=== PATIENT | male | born 1990 | race Caucasian/White ===

== ENCOUNTER → 2016-03-17 | Outpatient (CLI) | payer OTHER ==
[2016-03-17 17:41] LABS: Basophils % (A) 1 %; CH 29.5; CHCM 33.8; Eosinophils # (A) 0.1 k/uL (0-0.7); Eosinophils % (A) 1 %; HCT 47.7 % (39.0-53.0); HDW 2.29; HGB 16.2 gm/dL (13.0-17.5); Luc % (Auto) 2; Lymphocytes # (A) 1.1 k/uL (1.0-4.8); Lymphocytes % (A) 18 %; MCH 29.7 pg (25.0-35.0); MCHC 33.9 g/dL (31.0-37.0); MCV 87.6 fL (80.0-100.0); Monocytes # (A) 0.3 k/uL (0-1.0); Monocytes % (A) 5 %; Neutrophils # (A) 4.3 k/uL (1.3-7.7); Neutrophils % (A) 73 %; RBC 5.45 m/uL (4.30-5.90); RDW 12.7 % (11.5-15.5); WBC 5.9 k/uL (3.8-10.6); WBC (Perox) 5.99
[2016-03-17 17:49] LABS: ALT 37 U/L (21-72); AST 25 U/L (17-59); Alkaline Phosphatase 71 U/L (38-126); Anion Gap 14 mmol/L; Blood Urea Nitrogen 18 mg/dL (9-20); Calcium 9.8 mg/dL (8.4-10.2); Carbon Dioxide 29 mmol/L (22-30); Chloride 100 mmol/L (98-107); Glucose 110 mg/dL (74-99); Non-African American GFR(MDRD) >60 (>60 ml/min/1.73 sqM); Potassium 4.3 mmol/L (3.5-5.1); Sodium 143 mmol/L (137-145); Total Bilirubin 0.5 mg/dL (0.2-1.3); Total Protein 7.5 g/dL (6.3-8.2)
[2016-03-17 20:41] LABS: Hemoglobin A1C 4.8 % (4.2-6.1)
== END | disposition home or self-care (01) ==
LOC: LABWHC1 16:58
PROVIDERS: ATTEND Psychiatry & Neurology Psychiatry
DX: T50.905A Adverse effect of unspecified drugs, medicaments and biological substances, initial encounter (principal)
CPT/HCPCS: 36415; 80053; 83036; 84443; 85025

== ENCOUNTER → 2016-03-18 | Outpatient (CLI) | payer OTHER | END | disposition home or self-care (01) | LOC: LABWHC1 13:50 | PROVIDERS: ATTEND Psychiatry & Neurology Psychiatry | DX: T50.905A Adverse effect of unspecified drugs, medicaments and biological substances, initial encounter (principal) | CPT/HCPCS: 36415; 80183 ==

== ENCOUNTER → 2016-10-08 | Outpatient (CLI) | payer OTHER ==
[2016-10-08 08:01] LABS: ALT 55 U/L (21-72); AST 31 U/L (17-59); Alkaline Phosphatase 69 U/L (38-126); Anion Gap 11 mmol/L; Blood Urea Nitrogen 27 mg/dL (9-20); Calcium 9.6 mg/dL (8.4-10.2); Carbon Dioxide 29 mmol/L (22-30); Chloride 102 mmol/L (98-107); Glucose 86 mg/dL (74-99); Non-African American GFR(MDRD) >60 (>60 ml/min/1.73 sqM); Potassium 4.6 mmol/L (3.5-5.1); Sodium 142 mmol/L (137-145); Total Bilirubin 0.5 mg/dL (0.2-1.3); Total Protein 7.6 g/dL (6.3-8.2)
[2016-10-08 11:34] LABS: Hemoglobin A1C 5.2 % (4.2-6.1)
== END | disposition home or self-care (01) ==
LOC: LABWHC1 07:15
PROVIDERS: ATTEND Psychiatry & Neurology Psychiatry
DX: T50.905A Adverse effect of unspecified drugs, medicaments and biological substances, initial encounter (principal)
CPT/HCPCS: 36415; 80053; 80183; 83036; 84443

== ENCOUNTER → 2018-11-21 | Outpatient (CLI) | payer MEDICARE, OTHER ==
[2018-11-21 17:46] LABS: T4, Free (Free Thyroxine) 1.3 ng/dL (0.80-1.80)
[2018-11-21 17:51] LABS: African American GFR (CKD) 87.3 (60.0-200.0); Chol/HDL Ratio 6.05; LDL Cholesterol,Calculated 166.6 mg/dL (0.0-131.0); Lithium 0.3 mmol/L (0.5-1.2); VLDL Calculation 45.4 mg/dL (5.00-40.00)
[2018-11-21 21:20] LABS: Hemoglobin A1C 5.2 % (4.0-6.0)
== END | disposition home or self-care (01) ==
LOC: LABWHC1 07:44
PROVIDERS: ATTEND Psychiatry & Neurology Psychiatry
DX: Z51.81 Encounter for therapeutic drug level monitoring (principal); Z79.899 Other long term (current) drug therapy
CPT/HCPCS: 36415; 80061; 80178; 82565; 82947; 83036; 84439; 84443; 84520

== ENCOUNTER → 2019-02-24 | Outpatient (CLI) | payer MEDICARE, OTHER | END | disposition home or self-care (01) | LOC: LABWHC1 10:03 | PROVIDERS: ATTEND Psychiatry & Neurology Psychiatry | DX: Z51.81 Encounter for therapeutic drug level monitoring (principal); Z79.899 Other long term (current) drug therapy | CPT/HCPCS: 36415; 80178 ==

== ENCOUNTER 2020-01-15 12:46 | Emergency (ER) | payer MEDICARE, OTHER ==
[2020-01-15 12:56] VITALS: RESP 18
[2020-01-15] MEDS ORDERED: IBUPROFEN 600 MG TAB PO STA (14:01)
--- NOTE | 2020-01-15 14:15 | ED ---
General Adult HPI - General Chief complaint: Weakness Stated complaint: Poss COVID Time Seen by Provider: 01/15/20 13:45 Source: patient Mode of arrival: wheelchair Limitations: no limitations - History of Present Illness Initial comments: Patient is a 29-year-old male, history of asthma, mild cognitive impairment, presenting to emergency Department with complaints of body aches, fever that started late last night. He does have a dry cough as well. Patient states his doctor sent him in for a Covid test. Patient states he took some Tylenol about 2 hours prior to arrival. He denies any abdominal pain, nausea, vomiting, diarrhea. He denies any chest pain or shortness of breath. His biggest complaint is of body aches. He states has been able to eat and drink as normal. He has no further complaints at this time. Upon arrival to the ER, patient is febrile at 101.4, pulse is 105, rest of vitals are stable. - Related Data Home Medications Medication Instructions Recorded Confirmed ARIPiprazole [Abilify] 1 tab PO HS 09/05/13 09/05/13 Loratadine [Claritin] 10 mg PO DAILY 09/05/13 09/05/13 Methylphenidate HCl [Ritalin LA] 1 tab PO BID 09/05/13 09/05/13 OXcarbazepine [Oxcarbazepine] PO DIRECTED 09/05/13 09/05/13 Prazosin [Minipress] 10 mg PO HS 09/05/13 09/05/13 traZODone HCL [Desyrel] 1 tab PO DAILY 09/05/13 09/05/13 Allergies Allergy/AdvReac Type Severity Reaction Status Date / Time mirtazapine [From Remeron] AdvReac Vomiting Verified 01/15/20 12:56 Review of Systems ROS Statement: Those systems with pertinent positive or pertinent negative responses have been documented in the HPI. ROS Other: All systems not noted in ROS Statement are negative. Past Medical History Past Medical History: Asthma Additional Past Medical History / Comment(s): mildly incognitive History of Any Multi-Drug Resistant Organisms: MRSA Date of last positivie culture/infection: 2006 MDRO Source:: leg Past Surgical History: No Surgical Hx Reported Past Psychological History: No Psychological Hx Reported Smoking Status: Former smoker Past Alcohol Use History: None Reported Past Drug Use History: None Reported General Exam - General Exam Comments Initial Comments: GENERAL: Patient is well-developed and well-nourished. Patient is nontoxic and in no acute distress. HEAD: Atraumatic, normocephalic. EYES: Pupils equal round and reactive to light, extraocular movements intact, sclera anicteric, conjunctiva are normal. Eyelids were unremarkable. ENT: TMs normal, nares patent, oropharynx clear without exudates. Moist mucous membranes. NECK: Normal range of motion, supple without lymphadenopathy or JVD. LUNGS: Unlabored respirations. Breath sounds clear to auscultation bilaterally and equal. No wheezes rales or rhonchi. HEART: Regular rate and rhythm without murmurs, rubs or gallops. ABDOMEN: Soft, nontender, normoactive bowel sounds. No guarding, no rebound. No masses appreciated. : Deferred MUSCULOSKELETAL: Normal extremities with adequate strength and normal range of motion, no pitting or edema. No clubbing or cyanosis. NEUROLOGICAL: Patient is alert and oriented x 3. Motor and sensory are also intact. Cranial nerves II through XII grossly intact. Symmetrical smile. Normal speech, normal gait. PSYCH: Normal mood, normal affect. SKIN: Warm, Dry, normal turgor, no rashes or lesions noted. Limitations: no limitations Course Vital Signs 01/15/20 01/15/20 01/15/20 12:47 13:44 15:16 Temperature 99.0 F 101.4 F H 99.9 F H Pulse Rate 105 H Respiratory 18 Rate Blood Pressure 99/69 O2 Sat by Pulse 98 Oximetry 01/15/20 15:42 Temperature Pulse Rate 77 Respiratory 18 Rate Blood Pressure 108/74 O2 Sat by Pulse 99 Oximetry Medical Decision Making - Medical Decision Making She is a 29-year-old male here with flulike symptoms that started last night. He did arrive with a fever, rest of vitals were within normal limits. Patient took Tylenol about 3 hours prior to arrival. I did give him ibuprofen. His exam is unremarkable, his chest x-ray shows no acute findings. Patient was swabbed for Covid, this is pending. His vitals did improve after the ibuprofen. Patient is stable for discharge. I recommended him to continue with Tylenol and alternate with Motrin for fever and discomfort. He needs to continue drinking lots of water. He is in agreement with this plan and care. He is stable for discharge. Return parameters were discussed with the patient he verbalizes understanding. Disposition Clinical Impression: Upper respiratory infection Disposition: HOME SELF-CARE Condition: Stable Instructions (If sedation given, give patient instructions): Upper Respiratory Infection (ED) Additional Instructions: Please return to the Emergency Department if symptoms worsen or any other concerns. COVID test is pending. Takes about 48 hours. Alternate between Tylenol and Motrin every 4 hours for fever control. Increase water intake. Follow-up with PCP. Is patient prescribed a controlled substance at d/c from ED?: No Referrals: Pamela Keating MD [Primary Care Provider] - 1-2 days
--- NOTE | 2020-01-15 14:26 | XR ---
EXAMINATION TYPE: XR chest 2V DATE OF EXAM: 01/15/2020 COMPARISON: 05/04/2012 HISTORY: 29-year-old male cough and fever TECHNIQUE: PA and lateral views FINDINGS: The cardiomediastinal silhouette, aorta, and pulmonary vasculature are within normal limits. Some haz y lower lung densities related to overlying soft tissue. No consolidation or pleural effusion seen. IMPRESSION: No acute cardiopulmonary process.
[2020-01-15 15:17] VITALS: TEMP 99.9
[2020-01-15 15:43] VITALS: BP 108/74; PULSE 77
== END 2020-01-15 15:51 | disposition home or self-care (01) ==
LOC: EC 12:46 → EEVIPCON 12:46 → EC 15:51
DX: J06.9 Acute upper respiratory infection, unspecified (principal); Z88.8 Allergy status to other drugs, medicaments and biological substances; Z86.14 Personal history of Methicillin resistant Staphylococcus aureus infection; Z87.891 Personal history of nicotine dependence
CPT/HCPCS: 71046; 99285; U0003

== ENCOUNTER 2020-10-03 17:39 | Emergency (ER) | payer MEDICARE, OTHER ==
[2020-10-03 18:13] VITALS: BP 126/82; PULSE 77; RESP 18; TEMP 98.5
[2020-10-03] MEDS ORDERED: HYDROcodone/APAP 5-325MG 1 EACH TAB PO STA (19:21)
[2020-10-03] MEDS ORDERED: KETOROLAC 15 MG/ML 1 ML VIAL IVP STA (19:21)
[2020-10-03 20:13] LABS: Glucose,Whole Blood 95 mg/dL (75-99)
--- NOTE | 2020-10-03 20:42 | CT ---
EXAMINATION TYPE: CT brain wo con DATE OF EXAM: 10/03/2020 COMPARISON: None HISTORY: RT side facial numbess CT DLP: 1090.4 mGycm Automated exposure control for dose reduction was used. Ventricles and sulci appear normal. There is no mass effect nor midline shift. There is no sign of in tracranial hemorrhage. Calvarium is intact. There is no evidence of cerebral edema IMPRESSION: Negative unenhanced head CT scan.
[2020-10-03] MEDS ORDERED: predniSONE 20 MG TAB PO STA (21:24)
[2020-10-03] MEDS ORDERED: valACYclovir HCL 1,000 MG TABLET PO STA (21:25)
[2020-10-03] MEDS ORDERED: ARTIFICIAL TEARS-HYPROMELLOSE DROPS 15 ML BTL RIGHT EYE PRN (21:26)
--- NOTE | 2020-10-03 21:34 | ED ---
General Adult HPI - General Chief complaint: Neuro Symptoms/Deficit Stated complaint: Facial numbness Time Seen by Provider: 10/03/20 18:00 Source: patient, RN notes reviewed, old records reviewed Mode of arrival: wheelchair Limitations: physical limitation - History of Present Illness Initial comments: Patient is a 30-year-old male who presents emergency Department with a two-day history of complete right-sided paralysis, including his forehead. He states this occurred abruptly 2 days ago when he awoke with it. He denies any past medical history. Denies any chest pain, shortness of breath, fevers, chills, sick contacts. He has no other acute complaints at this time. Patient presents today for evaluation of his complete paralysis. He denies any changes in his vision or difficulty swallowing. Denies any difficulty breathing. He states it is not improved but also has not worsened over the last 2 days.He denies any other weakness, numbness, or other neurological deficits at this time. He denies any change in vision or right eye pain. States he does not have any pain in his right eye. - Related Data Home Medications Medication Instructions Recorded Confirmed ARIPiprazole [Abilify] 1 tab PO HS 09/05/13 09/05/13 Loratadine [Claritin] 10 mg PO DAILY 09/05/13 09/05/13 Methylphenidate HCl [Ritalin LA] 1 tab PO BID 09/05/13 09/05/13 OXcarbazepine [Oxcarbazepine] PO DIRECTED 09/05/13 09/05/13 Prazosin [Minipress] 10 mg PO HS 09/05/13 09/05/13 traZODone HCL [Desyrel] 1 tab PO DAILY 09/05/13 09/05/13 Previous Rx's Medication Instructions Recorded Artificial Tears-Hypromellose 1 drops RIGHT EYE Q1HR #1 dispenser 10/03/20 [Artificial Tear Drops] Erythromycin Ophth Oint (1 gm) 1 applic RIGHT EYE QID #1 tube 10/03/20 [Ilotycin Ophth Oint (1 gm)] predniSONE [Deltasone] 60 mg PO DAILY 7 Days #21 tab 10/03/20 valACYclovir [Valtrex] 1,000 mg PO TID 7 Days #42 tab 10/03/20 Allergies Allergy/AdvReac Type Severity Reaction Status Date / Time mirtazapine [From Remeron] AdvReac Vomiting Verified 10/03/20 18:13 Review of Systems ROS Statement: Those systems with pertinent positive or pertinent negative responses have been documented in the HPI. Review of Systems: CONST: Denies fever EYES: Denies blurry vision ENT: Denies nasal congestion C/V: Denies Chest pain RESP: Denies shortness of breath GI: Denies abdominal pain : Denies dysuria SKIN: Denies rash. MSK: Denies joint pain. NEURO: Endorses right-sided facial paralysis ROS Other: All systems not noted in ROS Statement are negative. Past Medical History Past Medical History: Asthma, Hyperlipidemia Additional Past Medical History / Comment(s): mildly incognitive History of Any Multi-Drug Resistant Organisms: MRSA Date of last positivie culture/infection: 2006 MDRO Source:: leg Past Surgical History: No Surgical Hx Reported Past Psychological History: No Psychological Hx Reported Smoking Status: Former smoker Past Alcohol Use History: None Reported Past Drug Use History: None Reported General Exam - General Exam Comments Initial Comments: General: Appears in no acute distress. HEAD: Normal with no signs of head trauma. EYES: PERRLA, EOMI, conjunctiva normal, no discharge. Patient does have paralysis of the right eye lid. ENT: Hearing grossly intact, normal oropharynx. RESPIRATORY: Clear breath sounds bilaterally. No wheezes, rales, or rhonchi. C/V: Regular rate and rhythm. S1 and S2 auscultated, no edema, peripheral pulses 2+ and intact throughout ABD: Abd is soft, nontender, nondistended EXT: Normal range of motion, no obvious deformity SKIN: No rashes or lesions observed on exposed skin. NEURO: Alert and oriented 4. Neurological exam is within normal limits except for a complete paralysis of the right side of the face including the forehead. 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 Cranial nerves II through XII are intact except for the right facial nerve. Remainder of the neurological exam is unremarkable. Cerebellar function is intact as evidenced by normal finger-nose testing. There are no focal sensory or strength deficits otherwise. Patient is able to ambulate without difficulty. Answers all questions and follows all commands. Stroke scale is 3 for complete right-sided facial paralysis. 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 I cannot rule out possible CVA at this time, and therefore just a screening CT of the head will be obtained. Symptoms have been persistent for 2 days without change. He was in agreement this plan. CT imaging showed no acute intracranial process. I discussed with the patient that he has right-sided Colon's palsy. I did recommend that he follow up with neurology. He will be provided with right-sided eyedrops, 60 mg of prednisone, as well as valacyclovir here in the emergency department. He was in agreement with this plan. He'll be discharged home with prescriptions as well as outpatient neurology follow-up. He was in agreement with this plan. I also provided him with tape instructions to take his right eye shut while sleeping to avoid having it dry out. He expressed understanding. I answered all questions that he had. I will provide the patient with a prescription for prednisone, valacyclovir, eye ointment, artificial tears. I instructed the patient to follow up with their PCP in the next 3 days. I provided contact information for follow up with Dr. Mehta of neurology. I explained that the patient should return to the emergency department if they experience any worsening symptoms. Strict return precautions were discussed with the patient. The patient expressed understanding of these instructions. I answered all questions that the patient had. The patient was discharged home in fair condition with their prescriptions and follow up information. - Lab Data Lab Results 10/03/20 Range/Units 20:11 POC Glucose (mg/dL) 95 (75-99) mg/dL POC Glu Pbx Wire Chief ID Maricruz Zimmerman Disposition Clinical Impression: Colon's palsy Disposition: HOME SELF-CARE Condition: Fair Instructions (If sedation given, give patient instructions): Colon Palsy (ED) Prescriptions: Artificial Tears-Hypromellose [Artificial Tear Drops] 1 drops RIGHT EYE Q1HR #1 dispenser predniSONE [Deltasone] 60 mg PO DAILY 7 Days #21 tab Erythromycin Ophth Oint (1 gm) [Ilotycin Ophth Oint (1 gm)] 1 applic RIGHT EYE QID #1 tube valACYclovir [Valtrex] 1,000 mg PO TID 7 Days #42 tab Is patient prescribed a controlled substance at d/c from ED?: No Referrals: Pamela Keating MD [Primary Care Provider] - 1-2 days Boom Mehta MD [STAFF PHYSICIAN] - 1-2 days
== END 2020-10-03 21:57 | disposition home or self-care (01) ==
LOC: EEVIPCON 17:39 → EC 17:39
DX: G51.0 Bell's palsy (principal); J45.909 Unspecified asthma, uncomplicated; E78.5 Hyperlipidemia, unspecified; Z79.52 Long term (current) use of systemic steroids; Z87.891 Personal history of nicotine dependence
CPT/HCPCS: 36415; 70450; 99284; J7512

== ENCOUNTER 2021-03-28 17:24 | Emergency (ER) | payer MEDICARE, OTHER ==
--- NOTE | 2021-03-28 19:11 | ED ---
General Adult HPI - General Chief complaint: Weakness Stated complaint: SHAAN,Weakness Time Seen by Provider: 03/28/21 18:58 Source: patient, RN notes reviewed Mode of arrival: ambulatory Limitations: no limitations - History of Present Illness Initial comments: 30-year-old male presents to the emergency department for evaluation of generalized weakness and body aches. Patient states he thinks he has Covid. Patient states the symptoms began on Tuesday with some nasal congestion and mild cough. States his has similar symptoms and tested positive for Covid. Does complain of mild shortness of breath with activity, but denies difficulty breathing. Patient denies fever, chills, headache, chest pain, abdominal pain, nausea, vomiting, diarrhea, dysuria, or hematuria. - Related Data Home Medications Medication Instructions Recorded Confirmed ARIPiprazole [Abilify] 1 tab PO HS 09/05/13 09/05/13 Loratadine [Claritin] 10 mg PO DAILY 09/05/13 09/05/13 Methylphenidate HCl [Ritalin LA] 1 tab PO BID 09/05/13 09/05/13 OXcarbazepine [Oxcarbazepine] PO DIRECTED 09/05/13 09/05/13 Prazosin [Minipress] 10 mg PO HS 09/05/13 09/05/13 traZODone HCL [Desyrel] 1 tab PO DAILY 09/05/13 09/05/13 Previous Rx's Medication Instructions Recorded Artificial Tears-Hypromellose 1 drops RIGHT EYE Q1HR #1 dispenser 10/03/20 [Artificial Tear Drops] Erythromycin Ophth Oint (1 gm) 1 applic RIGHT EYE QID #1 tube 10/03/20 [Ilotycin Ophth Oint (1 gm)] predniSONE [Deltasone] 60 mg PO DAILY 7 Days #21 tab 10/03/20 valACYclovir [Valtrex] 1,000 mg PO TID 7 Days #42 tab 10/03/20 Allergies Allergy/AdvReac Type Severity Reaction Status Date / Time mirtazapine [From Remeron] AdvReac Vomiting Verified 03/28/21 17:28 Review of Systems ROS Statement: Those systems with pertinent positive or pertinent negative responses have been documented in the HPI. ROS Other: All systems not noted in ROS Statement are negative. Past Medical History Past Medical History: Asthma, Hyperlipidemia Additional Past Medical History / Comment(s): mildly incognitive History of Any Multi-Drug Resistant Organisms: MRSA Date of last positivie culture/infection: 2006 MDRO Source:: leg Past Surgical History: No Surgical Hx Reported Past Psychological History: No Psychological Hx Reported Smoking Status: Former smoker Past Alcohol Use History: None Reported Past Drug Use History: None Reported General Exam Limitations: no limitations (Well-developed, well-nourished male in no acute distress. Initial temperature 97.2, pulse 101, respirations 18, blood pressure 122/88, pulse oximeter percent on room air.) General appearance: alert, in no apparent distress ENT exam: Present: normal exam, normal oropharynx, mucous membranes moist Neck exam: Present: normal inspection. Absent: tenderness, meningismus, lymphadenopathy Respiratory exam: Present: normal lung sounds bilaterally. Absent: respiratory distress, wheezes, rales, rhonchi, stridor Cardiovascular Exam: Present: regular rate, normal rhythm, normal heart sounds. Absent: systolic murmur, diastolic murmur, rubs, gallop, clicks GI/Abdominal exam: Present: soft, normal bowel sounds. Absent: distended, tenderness, guarding, rebound, rigid Neurological exam: Present: alert, oriented X3, CN II-XII intact Psychiatric exam: Present: normal affect, normal mood Skin exam: Present: warm, dry, intact, normal color. Absent: rash Course Vital Signs 03/28/21 03/28/21 17:25 19:40 Temperature 97.2 F L 98.9 F Pulse Rate 101 H 87 Respiratory 18 16 Rate Blood Pressure 122/88 137/88 O2 Sat by Pulse 100 99 Oximetry Medical Decision Making - Medical Decision Making 30-year-old male with a past medical history of mild asthma presents to the emergency department for evaluation of fatigue and body aches. Physical exam findings are unremarkable. Patient is well-appearing and in no acute distress. Vital signs are stable. He does have some nasal congestion and occasional cou gh. Patient's Covid test is positive. He does not qualify for the monoclonal antibody infusion. He will be discharged home with a note for work. He is instructed to isolate for 10 days from symptoms onset. Did discuss avoidance of smoking and vaping. Encouraged to follow up with his PCP for a recheck via telephone or video visit. Return parameters were discussed in detail. Patient verbalizes understanding and agrees with this plan. This patient's care was discussed with my attending, Dr. Olivares. - Lab Data Lab Results 03/28/21 Range/Units 17:30 Coronavirus (PCR) Detected A (Not Detectd) Disposition Clinical Impression: COVID-19 Disposition: HOME SELF-CARE Condition: Stable Instructions (If sedation given, give patient instructions): Coronavirus Disease 2019 (COVID-19) Additional Instructions: Alternate Tylenol and Motrin as needed for fever. May take oral decongestant for cough and nasal symptoms. Vitamin C, vitamin D, and zinc have been shown to be helpful. Follow-up with your primary care provider for a recheck in the next 1-2 days. Return to the emergency department with any new, worsening, or concerning symptoms. Is patient prescribed a controlled substance at d/c from ED?: No Referrals: Pamela Keating MD [Primary Care Provider] - 1-2 days Time of Disposition: 19:17
[2021-03-28 19:41] VITALS: BP 137/88; PULSE 87; RESP 16; TEMP 98.9
== END 2021-03-28 19:40 | disposition home or self-care (01) ==
LOC: EC 17:24
DX: U07.1 COVID-19 (principal); J45.909 Unspecified asthma, uncomplicated; Z87.891 Personal history of nicotine dependence; Z88.8 Allergy status to other drugs, medicaments and biological substances
CPT/HCPCS: 87635; 99284

== ENCOUNTER 2021-06-11 07:30 | Emergency (ER) | payer MEDICARE, OTHER ==
[2021-06-11] MEDS ORDERED: SODIUM CHLORIDE 0.9% 1,000 ML IV STA (07:55)
[2021-06-11] MEDS ORDERED: SODIUM CHLORIDE 0.9% 500 ML 500 ML IV STA (07:55)
--- NOTE | 2021-06-11 07:58 | ED ---
Weakness HPI - General Chief complaint: Weakness Stated complaint: Weakness Time Seen by Provider: 06/11/21 07:48 Source: patient, RN notes reviewed Mode of arrival: ambulatory Limitations: no limitations - History of Present Illness Initial comments: This a 31-year-old male presents emergency Department with chief complaint of generalized weakness. Patient states that he just feels tired. Patient states that having on and off symptoms for last week or so. Patient states she got out of work today states he made it there but is just too tired, felt very drowsy so he left presented here. He does admit that his been out of his Vyvanse for 1 week. Patient states that he did go to his appointment yesterday for his refill. Patient denies any chest pain shortness breath no headache or dizziness. He states he has some numbness and tingling. 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 Patient denies any cough or cold-like symptoms no fevers or chills. No abdominal pain - Related Data Home Medications Medication Instructions Recorded Confirmed Loratadine [Claritin] 10 mg PO DAILY 09/05/13 06/11/21 Lisdexamfetamine Dimesylate 30 mg PO DAILY 06/11/21 06/11/21 [Vyvanse] Allergies Allergy/AdvReac Type Severity Reaction Status Date / Time mirtazapine [From Remeron] AdvReac Vomiting Verified 06/11/21 08:37 Review of Systems ROS Statement: Those systems with pertinent positive or pertinent negative responses have been documented in the HPI. ROS Other: All systems not noted in ROS Statement are negative. Past Medical History Past Medical History: Asthma, Hyperlipidemia Additional Past Medical History / Comment(s): mildly incognitive, pells palsy History of Any Multi-Drug Resistant Organisms: MRSA Date of last positivie culture/infection: 2006 MDRO Source:: leg Past Surgical History: No Surgical Hx Reported Past Psychological History: No Psychological Hx Reported Smoking Status: Former smoker Past Alcohol Use History: None Reported Past Drug Use History: None Reported General Exam Limitations: no limitations General appearance: alert, in no apparent distress Head exam: Present: atraumatic, normocephalic, normal inspection Eye exam: Present: normal appearance, PERRL, EOMI. Absent: scleral icterus, conjunctival injection, periorbital swelling ENT exam: Present: normal exam, mucous membranes moist Neck exam: Present: normal inspection, full ROM. Absent: tenderness, meningismus, lymphadenopathy Respiratory exam: Present: normal lung sounds bilaterally. Absent: respiratory distress, wheezes, rales, rhonchi, stridor Cardiovascular Exam: Present: regular rate, normal rhythm, normal heart sounds. Absent: systolic murmur, diastolic murmur, rubs, gallop, clicks GI/Abdominal exam: Present: soft, normal bowel sounds. Absent: distended, t enderness, guarding, rebound, rigid Extremities exam: Present: other (Upper and lower extremity strength equal bilaterally) Neurological exam: Present: alert, oriented X3, CN II-XII intact, reflexes normal. Absent: motor sensory deficit Skin exam: Present: warm, dry, intact, normal color. Absent: rash Course Vital Signs 06/11/21 07:36 Temperature 98.2 F Pulse Rate 105 H Respiratory 16 Rate Blood Pressure 129/83 O2 Sat by Pulse 98 Oximetry Medical Decision Making - Medical Decision Making Patient was hydrated, states he feels greatly improved. Labs not revealing acute findings. Patient is neurologically intact with no acute findings. Patient was discharged in stable condition return parameters were discussed. - Lab Data Result diagrams: 06/11/21 08:05 06/11/21 08:05 Lab Results 06/11/21 06/11/21 06/11/21 Range/Units 08:05 08:05 08:05 WBC 7.3 (3.8-10.6) k/uL RBC 5.49 (4.30-5.90) m/uL Hgb 15.9 (13.0-17.5) gm/dL Hct 47.1 (39.0-53.0) % MCV 85.8 (80.0-100.0) fL MCH 29.0 (25.0-35.0) pg MCHC 33.8 (31.0-37.0) g/dL RDW 13.3 (11.5-15.5) % Plt Count 281 (150-450) k/uL MPV 7.4 Neutrophils % 69 % Lymphocytes % 20 % Monocytes % 6 % Eosinophils % 3 % Basophils % 1 % Neutrophils # 5.0 (1.3-7.7) k/uL Lymphocytes # 1.5 (1.0-4.8) k/uL Monocytes # 0.4 (0-1.0) k/uL Eosinophils # 0.2 (0-0.7) k/uL Basophils # 0.1 (0-0.2) k/uL Sodium 135 L (137-145) mmol/L Potassium 3.9 (3.5-5.1) mmol/L Chloride 105 (98-107) mmol/L Carbon Dioxide 22 (22-30) mmol/L Anion Gap 8 mmol/L BUN 16 (9-20) mg/dL Creatinine 0.96 (0.66-1.25) mg/dL Est GFR (CKD-EPI)AfAm >90 (>60 ml/min/1.73 sqM) Est GFR (CKD-EPI)NonAf >90 (>60 ml/min/1.73 sqM) Glucose 138 H (74-99) mg/dL Plasma Lactic Acid Shun (0.7-2.0) mmol/L Calcium 8.8 (8.4-10.2) mg/dL Magnesium 2.0 (1.6-2.3) mg/dL Total Bilirubin 0.5 (0.2-1.3) mg/dL AST 28 (17-59) U/L ALT 27 (4-49) U/L Alkaline Phosphatase 58 (38-126) U/L Total Protein 6.3 (6.3-8.2) g/dL Albumin 3.7 (3.5-5.0) g/dL Urine Color Yellow Urine Appearance Clear (Clear) Urine pH 6.5 (5.0-8.0) Ur Specific [place] 1.016 (1.001-1.035) Urine Protein Negative (Negative) Urine Glucose (UA) Negative (Negative) Urine Ketones Negative (Negative) Urine Blood Negative (Negative) Urine Nitrite Negative (Negative) Urine Bilirubin Negative (Negative) Urine Urobilinogen <2.0 (<2.0) mg/dL Ur Leukocyte Esterase Moderate H (Negative) Urine RBC <1 (0-5) /hpf Urine WBC 3 (0-5) /hpf Heterophile Antibody (Negative) 06/11/21 06/11/21 Range/Units 08:05 08:05 WBC (3.8-10.6) k/uL RBC (4.30-5.90) m/uL Hgb (13.0-17.5) gm/dL Hct (39.0-53.0) % MCV (80.0-100.0) fL MCH (25.0-35.0) pg MCHC (31.0-37.0) g/dL RDW (11.5-15.5) % Plt Count (150-450) k/uL MPV Neutrophils % % Lymphocytes % % Monocytes % % Eosinophils % % Basophils % % Neutrophils # (1.3-7.7) k/uL Lymphocytes # (1.0-4.8) k/uL Monocytes # (0-1.0) k/uL Eosinophils # (0-0.7) k/uL Basophils # (0-0.2) k/uL Sodium (137-145) mmol/L Potassium (3.5-5.1) mmol/L Chloride (98-107) mmol/L Carbon Dioxide (22-30) mmol/L Anion Gap mmol/L BUN (9-20) mg/dL Creatinine (0.66-1.25) mg/dL Est GFR (CKD-EPI)AfAm (>60 ml/min/1.73 sqM) Est GFR (CKD-EPI)NonAf (>60 ml/min/1.73 sqM) Glucose (74-99) mg/dL Plasma Lactic Acid Shun 1.7 (0.7-2.0) mmol/L Calcium (8.4-10.2) mg/dL Magnesium (1.6-2.3) mg/dL Total Bilirubin (0.2-1.3) mg/dL AST (17-59) U/L ALT (4-49) U/L Alkaline Phosphatase (38-126) U/L Total Protein (6.3-8.2) g/dL Albumin (3.5-5.0) g/dL Urine Color Urine Appearance (Clear) Urine pH (5.0-8.0) Ur Specific [place] (1.001-1.035) Urine Protein (Negative) Urine Glucose (UA) (Negative) Urine Ketones (Negative) Urine Blood (Negative) Urine Nitrite (Negative) Urine Bilirubin (Negative) Urine Urobilinogen (<2.0) mg/dL Ur Leukocyte Esterase (Negative) Urine RBC (0-5) /hpf Urine WBC (0-5) /hpf Heterophile Antibody Negative (Negative) Disposition Clinical Impression: Fatigue, Dehydration Disposition: HOME SELF-CARE Condition: Stable Instructions (If sedation given, give patient instructions): Fatigue (ED) Additional Instructions: Please return to the Emergency Department if symptoms worsen or any other concerns. Is patient prescribed a controlled substance at d/c from ED?: No Referrals: Pamela Keating MD [Primary Care Provider] - 1-2 days Time of Disposition: 10:01
[2021-06-11 08:33] LABS: Basophils # (A) 0.1 k/uL (0-0.2); Basophils % (A) 1 %; Eosinophils # (A) 0.2 k/uL (0-0.7); Eosinophils % (A) 3 %; HCT 47.1 % (39.0-53.0); HGB 15.9 gm/dL (13.0-17.5); Lymphocytes # (A) 1.5 k/uL (1.0-4.8); Lymphocytes % (A) 20 %; MCHC 33.8 g/dL (31.0-37.0); MCV 85.8 fL (80.0-100.0); Mean Platelet Volume 7.4; Monocytes # (A) 0.4 k/uL (0-1.0); Monocytes % (A) 6 %; Neutrophils % (A) 69 %; Platelet Count 281 k/uL (150-450); RBC 5.49 m/uL (4.30-5.90); RDW 13.3 % (11.5-15.5); WBC 7.3 k/uL (3.8-10.6)
[2021-06-11 08:59] LABS: ALT 27 U/L (4-49); AST 28 U/L (17-59); African American GFR (CKD) >90 (>60 ml/min/1.73 sqM); Albumin 3.7 g/dL (3.5-5.0); Alkaline Phosphatase 58 U/L (38-126); Anion Gap 8 mmol/L; Blood Urea Nitrogen 16 mg/dL (9-20); Calcium 8.8 mg/dL (8.4-10.2); Carbon Dioxide 22 mmol/L (22-30); Chloride 105 mmol/L (98-107); Glucose 138 mg/dL (74-99); Non-African American GFR(CKD) >90 (>60 ml/min/1.73 sqM); Potassium 3.9 mmol/L (3.5-5.1); Sodium 135 mmol/L (137-145); Total Bilirubin 0.5 mg/dL (0.2-1.3); Total Protein 6.3 g/dL (6.3-8.2)
[2021-06-11 09:09] LABS: Appearance,Urine Clear (Clear); Bilirubin,Urine Negative (Negative); Blood,Urine Negative (Negative); Color,Urine Yellow; Glucose,Urine (UA) Negative (Negative); Ketones,Urine Negative (Negative); Leukocyte Esterase,Urine Moderate (Negative); Nitrite,Urine Negative (Negative); PH, Urine 6.5 (5.0-8.0); Protein,Urine Negative (Negative); RBC,Urine <1 /hpf (0-5); Specific Gravity,Urine 1.016 (1.001-1.035); Urobilinogen,Urine <2.0 mg/dL (<2.0); WBC,Urine 3 /hpf (0-5)
[2021-06-11 10:27] VITALS: BP 123/62; PULSE 77; RESP 18; TEMP 98
== END 2021-06-11 10:25 | disposition home or self-care (01) ==
LOC: EC 07:30
DX: R53.83 Other fatigue (principal); E86.0 Dehydration; J45.909 Unspecified asthma, uncomplicated; E78.5 Hyperlipidemia, unspecified; Z87.891 Personal history of nicotine dependence
CPT/HCPCS: 36415; 80053; 81001; 83605; 83735; 85025; 86308; 93005; 96360; 99285

== ENCOUNTER → 2024-01-12 | Outpatient (CLI) | payer MEDICARE, OTHER ==
[2024-01-12 11:51] VITALS: BP 102/68; PULSE 73; RESP 20; TEMP 97.8
--- NOTE | 2024-01-12 13:59 | P.SLEEP ---
History of Present Illness DATE: 2023 CONSULTATION/NEW PATIENT EVALUATION HISTORY OF PRESENT ILLNESS/SLEEP-WAKE EVALUATION: 33-year-old gentleman had been evaluated in the sleep center for possible obstructive sleep apnea hypopnea syndrome. SLEEP SCHEDULE: Usually sleep schedule from 3 AM until 12 noon presently 7 days a week. FALLING ASLEEP: Patient has difficulties with falling asleep, although no TV in bedroom. DURING SLEEP: Patient sleeps in different positions with loud snoring and episodes of stop breathing during the sleep. Patient wakes up from sleep up to 10 times. Positive history of restless leg symptoms, grinding teeth, dry mouth, sleep talking, sweating and nocturia. No history of hypnogogical hallucinations, sleep paralysis, or cataplexy. DURING THE DAY/WAKE STATE: In the morning patient wake up tired, has difficulties to pay attention, has, epilepsy, stroke, cancer, diabetes, during sleep with memory, concentration, irritability, depression and anxiety. [place] sleepiness scale is increased to 11. Patient may take 2 naps afternoon. PAST MEDICAL HISTORY: Hyperlipidemia, ADHD, history of bipolar. PAST SURGICAL HISTORY: None. MEDICATIONS: Please see below. SOCIAL HISTORY: Please see below. FAMILY HISTORY: Heart problems, epilepsy, stroke, asthma, cancer, during the sleep. REVIEW OF SYSTEMS: Loud snoring, multiple awakenings from sleep, sleepiness during the day. No fevers. No double vision. No recent chest pain. No shortness of breath. No abdominal pain. No bleeding episodes. No blood in urine. No seizure episodes. PHYSICAL EXAMINATION: GENERAL: A pleasant patient without any distress. VITAL SIGNS: Please see below, weight 310 pounds, BMI 43.8. HEENT: PERRLA, EOMI. Evaluation of oropharynx showed tongue protrudes midline, low position of soft palate Mallampati 4. NECK: Supple. No JVD. Thyroid is not palpable. 20 inches in circumference. LUNGS: Clear to percussion and to auscultation. Good air exchange. No wheezing or rhonchi. HEART: S1, S2 regular. No murmurs, gallops or rubs. ABDOMEN: Soft and nontender. Bowel sounds are present. No organomegaly appreciated. EXTREMITIES: No clubbing or cyanosis. SNACK STEWARD: Awake, alert, and oriented x3. Cranial nerves 2 to 7 intact. There is no fasciculation or atrophy noted. No focal deficits observed. ASSESSMENT: 1. Loud snoring, multiple awakenings from sleep, extremely low position of soft palate Mallampati 4, sleepiness with [place] Sleepiness Scale increased to 11, extremely wide neck 20 inches in circumference. Obstructive sleep apnea hypopnea syndrome. 2. Obesity, BMI 43.8. 3. Hyperlipidemia. 4. ADHD. 5. Restless leg symptoms. 6 . Possibly periodic limb movements. 7. History of bipolar. PLAN: 1. Polysomnography for evaluation of patient's breathing during sleep. 2. Following plan after reading sleep study 3. Preferable position during sleep on the side. 4. No driving if patient feels any sleepiness. Patient is aware of civil and criminal liability for unsafe driving. 5. Sleep hygiene with regular sleep time for at least 7.5-8 hours. 6. Watching and losing weight. Thank you very much for referring this patient for consultation. Sincerely, Conor Blackburn MD, PhD, FAASM. Diplomat of [place] [employer], Sleep Medicine Board by [place] [employer] [employer] [facility] [place] cc: Faviola Bernstein MD Past Medical History Past Medical History: Asthma, GERD/Reflux, Hyperlipidemia, Hypertension Additional Past Medical History / Comment(s): mildly incognitive, pells palsy, BIPOLAR/DEPRESSION, ADHD, ODD. SNORING, HEADACHES, INSOMNIA, RESTLESS LEGS History of Any Multi-Drug Resistant Organisms: MRSA Date of last positivie culture/infection: 2006 MDRO Source:: leg Past Surgical History: No Surgical Hx Reported Past Psychological History: ADD/ADHD, Bipolar, Depression Smoking Status: Current every day smoker Past Alcohol Use History: None Reported Past Drug Use History: None Reported - Past Family History Mother Family Medical History: Asthma, Diabetes Mellitus, Thyroid Disorder Additional Family Medical History / Comment(s): HEADACHES, INSOMNIA, LIVER PROBLEMS, RESTLESS LEGS Medications and Allergies Home Medications Medication Instructions Recorded Confirmed Type Loratadine [Claritin] 10 mg PO DAILY 09/05/13 06/11/21 History Lisdexamfetamine Dimesylate 30 mg PO DAILY 06/11/21 06/11/21 History [Vyvanse] Rosuvastatin [Crestor] 20 mg PO DAILY 01/12/24 01/12/24 History guanFACINE HCL [Intuniv] 4 mg PO DAILY 01/12/24 01/12/24 History Allergies Allergy/AdvReac Type Severity Reaction Status Date / Time mirtazapine [From Remeron] AdvReac Vomiting Verified 06/17/21 16:57 Physical Exam Vitals: Vital Signs Temp Pulse Resp BP Pulse Ox 01/12/24 11:47 97.8 F 73 20 102/68 97 Intake and Output 01/11/24 01/12/24 01/12/24 22:59 06:59 14:59 Other: Weight 140.614 kg Sleep Note - Sleep Data ESS Total: 11 - Sleep Note Sleep Note: Temperature: 97.8 F Pulse Rate: 73 Respiratory Rate: 20 Blood Pressure: 102/68 SpO2: 97 Height: 5 ft 10.2 in Weight: 140.614 kg BMI: Neck Circumference: 20
== END ==
LOC: 3 N SLEEP 10:59
PROVIDERS: ATTEND Internal Medicine
DX: G47.33 Obstructive sleep apnea (adult) (pediatric) (principal); E66.9 Obesity, unspecified; E78.5 Hyperlipidemia, unspecified; F90.9 Attention-deficit hyperactivity disorder, unspecified type; G25.81 Restless legs syndrome; Z87.39 Personal history of other diseases of the musculoskeletal system and connective tissue; Z68.41 Body mass index [BMI] 40.0-44.9, adult; Z86.59 Personal history of other mental and behavioral disorders; Z88.8 Allergy status to other drugs, medicaments and biological substances
CPT/HCPCS: 99211

== ENCOUNTER 2024-01-17 19:22 | Outpatient (CLI) | payer MEDICARE, OTHER ==
--- NOTE | 2024-01-25 09:54 | P.PCN ---
Description of Procedure: POLYSOMNOGRAPHY REPORT PROCEDURE(S)/DATE(S): Polysomnography 01/17/2024 CLINICAL: Patient has been seen in the sleep center for evaluation of obstructive sleep apnea-hypopnea syndrome. Please see my consultation. Sleep study has been done for evaluation of patient breathing during the sleep. PROCEDURE: The standard montage for clinical polysomnography included the electroencephalogram, the electrooculogram, the mentalis surface electromyography and Lead II cardiography. The respiratory battery consisted of measurements of nasal/buccal air flow, pressure transducer measurements from nose, thoracic and/or abdominal effort and intercostal surface electromyography. Video monitoring has been done to check for any parasomnia events. Nocturnal oxyhemoglobin saturations were obtained by finger oximetry. Step-miles titration with positive airway pressure was utilized to control the respiratory events, if necessary. RESULTS: During the diagnostic sleep study sleep efficiency was extremely short 59.6%. Latency to sleep onset was prolonged to 33.5 min. Sleep architecture s howed stage NI was normal 6.9%, Delta sleep was normal 14.8%, REM sleep was borderline 18.2%. Respiratory channel showed 1 obstructive apneas, 0 mixed apneas, 0 central apneas, 54 hypopneas with lowest oxygen level 85%. Total apnea hypopnea index was 15.2. Heart rate was in the range between 47 and 55, average 51. EMG showed 3.9 periodic limb movements per hour with 1.7 micro-arousals per ho ur. IMPRESSIONS: 1. Moderate obstructive sleep apnea hypopnea syndrome. 2. No significant periodic limb movements have been documented. Please see other impressions from consultation PLAN: 1. The patient will have PAP titration for correction of respiratory abnormalities during the sleep. 2. Losing weight program. 3. Sleep hygiene with regular time in bed for at least 7-1/2 hours. 4. No driving if feeling sleepiness. Thank you very much for allowing me to participate in the management of your patient. Sincerely, Conor Blackburn MD, PhD, FAASM. Diplomat of [place] [employer], Sleep Medicine Board by [place] [employer] [facility] [place] cc: Faviola Trevizo MD
== END 2024-01-18 05:27 | disposition home or self-care (01) ==
LOC: 3 N SLEEP 19:22
PROVIDERS: ATTEND Internal Medicine
DX: G47.33 Obstructive sleep apnea (adult) (pediatric) (principal); Z88.8 Allergy status to other drugs, medicaments and biological substances
CPT/HCPCS: 95810